=== PATIENT | female | born 1955 | race Caucasian/White ===

== ENCOUNTER 2017-12-23 01:47 | Day surgery (SDC) | payer OTHER ==
[~2017-12-23] VITALS: Ht 167.6 cm; Wt 62.6 kg
[~2017-12-23 01:47] MED LIST: CEP500 PO; LEV75 PO; LEVO-3 PO; PER PO
--- NOTE | 2017-12-23 07:13 | Post Operative Progress Note ---
Post Operative Progress Note Date: Dec 23, 2017 Time: 08:28 Surgeon: josie Anesthesia: dr lujan Pre-Op Diagnosis: screening colonoscopy Post-Op Diagnosis: sigmoid diverticulosis Procedure(s): colonoscopy ARBEN CALABRESE MD Dec 23, 2017 07:13
--- NOTE | 2017-12-23 07:14 | Short(Outpt) Discharge Summary ---
Discharge Summary Reason for Hosp/Final Diag: (1) Encounter for screening colonoscopy Hospital Course & Plan: sigmoid diverticulosis Departure Discharge to: Home Discharge Instructions Home Meds Reported Medications Levothyroxine Sodium (LEVOTHYROXINE SODIUM) 100 Mcg Tablet, 100 MCG PO QDAY, TAB 12/16/17 Discontinued Reported Medications Cephalexin Monohydrate (Keflex) 500 Mg Cap, 0 PO QID, #20 0 Refills 03/09/08 Oxycodone/Acetaminophen (OXYCODONE/ACETAMINOPHEN 5MG/325 MG) 5 Mg/325 Mg Tab, 1 TAB PO Q4-6H 03/09/08 Levothyroxine Sodium (Synthroid/Levothroid) 0.075 Mg Tab, 0.075 MG PO QDAY 03/09/08 Diet: High Fiber Activity: As Tolerated ARBEN CALABRESE MD Dec 23, 2017 07:14
[2017-12-23] MEDS ORDERED: PROPOFOL EMUL(*) 10MG/ML 20 ML 20 ML ONE (07:18)
[2017-12-23] MEDS ORDERED: LIDOCAINE/SOD BICARB 8.4% SYR ID ONE (07:20)
[2017-12-23] MEDS ORDERED: NORMOSOL R SOLN(*) 1000 ML BAG 1,000 ML IV PRN (07:20)
[2017-12-23 07:24] VITALS: BP 134/65
[2017-12-23 08:28] VITALS: BP 113/64
[2017-12-23 08:30] VITALS: BP 117/67
--- NOTE | 2017-12-23 08:44 | NACHTIGAL COLONOSCOPY ---
EVENT DATE: December 23, 2017 SURGEON: Leo Stovall MD ANESTHESIOLOGIST: Osman Valera M.D. ANESTHESIA: Sedation PREOPERATIVE DIAGNOSIS Screening colonoscopy. POSTOPERATIVE DIAGNOSIS Sigmoid diverticulosis. PROCEDURE PERFORMED Colonoscopy. DESCRIPTION OF PROCEDURE The patient was placed in the left lateral decubitus position and given intravenous sedation. The rectal examination was negative. The flexible colonoscope was inserted and advanced to the cecum. She had an excellent bowel prep. The ileocecal valve, base of the cecum and appendiceal orifice were identified. The scope was slowly withdrawn. Care was taken to look behind the haustral folds. There were no mucosal abnormalities in the cecum, right colon, transverse or descending colon. She had several diverticula in the sigmoid colon. No evidence of diverticulitis. No narrowing. The rectum was normal. The scope was retroflexed and that appeared to be normal. She will require a repeat colonoscopy in ten years. KULWANT
[2017-12-23 08:45] VITALS: BP 130/80
[2017-12-23 08:48] VITALS: BP 132/91
[2017-12-23 08:49] VITALS: BP 127/75
== END 2017-12-23 09:00 | disposition home or self-care (01) ==
LOC: OR 01:47
PROVIDERS: ATTEND Surgery
DX: Z12.11 Encounter for screening for malignant neoplasm of colon (principal); K57.30 Diverticulosis of large intestine without perforation or abscess without bleeding; E03.9 Hypothyroidism, unspecified; Z87.891 Personal history of nicotine dependence
CPT/HCPCS: 00812; 45378; J2704